=== PATIENT | male | born 1950 ===

== ENCOUNTER 2018-06-24 06:54 | Inpatient (IN) ==
[2018-06-24] MEDS ORDERED: CeFAZolin Syr 2,000MG/20 ML 2,000 MG/20 ML SYRINGE IVPB ONE (07:23)
[2018-06-24] MEDS ORDERED: Heparin 1,000 UNITS/500 mL 500 ML ONE (07:28)
[2018-06-24] MEDS ORDERED: Ringers Solution, Lactated 1,000 ML IVC SCH (07:30)
[2018-06-24] MEDS ORDERED: *HR* Vasopressin 20 UNIT/ML VIAL ONE (07:48)
--- NOTE | 2018-06-24 07:48 | Anesthesia Evaluation PreOp ---
Date of Encounter: 06/24/18 Time of Encounter: 07:46 - Past History Planned Operation: L carotid stenosis Cardiac History: HTN, Hyperlipidemia Pulmonary History: Former smoker [employer] History: CVA, Other (Left upper extremity tremor) Other Medical History: Renal (CKD), Diabetes Type II Anesthesia History: No Prior Anesthetic Complications, Past Anesthesia Alcohol Use: none Drug use: marijuana Medications and Allergies Atenolol/Chlorthalidone [Tenoretic 50 Tablet] 1 tab PO DAILY 06/18/18 [History] Cyclobenzaprine [Flexeril] 10 mg PO HS 06/18/18 [History] Diclofenac Sodium [Voltaren] 75 mg PO BID 06/18/18 [History] Gabapentin [Neurontin] 400 mg PO TID 06/18/18 [History] Metformin HCl [Glucophage] 1,000 mg PO BID 06/18/18 [History] Amlodipine Besylate [Amlodipine Besylate] 10 mg PO DAILY 06/24/18 [History] Aspirin 325 mg PO DAILY 06/24/18 [History] Pravastatin Sodium [Pravachol] 20 mg PO HS 06/24/18 [History] 3 Allergy/AdvReac Type Severity Reaction Status Date / Time No Known Allergies Allergy Verified 06/24/18 07:28 - Meds/Allergy Pre-op Review Medications Reviewed: Yes Allergies Reviewed: Yes Beta Blockers on Current Med List: Yes Anesthesia Results - Labs Laboratory Tests 06/18/18 06/18/18 06/18/18 02:05 02:05 02:05 WBC 7.3 Hgb 13.4 Hct 38.3 Plt Count 165 PT 12.4 H INR 1.1 Sodium 136 Potassium 3.8 Chloride 94 L Carbon Dioxide 31 H BUN 25 H Creatinine 1.61 H Est GFR (Non-Af Amer) 43 L Hemoglobin A1c 06/18/18 16:30 WBC Hgb Hct Plt Count PT INR Sodium Potassium Chloride Carbon Dioxide BUN Creatinine Est GFR (Non-Af Amer) Hemoglobin A1c 8.1 H - Imaging EKG: report reviewed, image reviewed, other (1 degree AV block) Additional studies: Echo 06/2018 EF 60% no valvular abnormalities Anesthesia Exam Vital Signs/O2 Sat/Glucose, Most Recent Temp Pulse Resp BP Pulse Ox 97.8 F 59 16 138/81 97 06/24/18 07:21 06/24/18 07:21 06/24/18 07:21 06/24/18 07:21 06/24/18 07:21 Blood Glucose* 173 Height: 1.85 m Weight: 99 kg NPO (# of Hours): > 8 hrs - HEENT Pupil (Motor): Pupils equal Mallampati: II Teeth: Edentulous Oral Opening: Greater than 3 - [employer] Motor: Normal RUE, Normal LUE, Normal RLE, Normal LLE, Normal Face [employer] Sensory: Normal: RUE, LUE, Face, Deficit: RLE (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
[2018-06-24] MEDS ORDERED: Acetaminophen IV 1,000 MG/100 ML INFUS..BTL IVPB ONE (07:50)
[2018-06-24] MEDS ORDERED: Famotidine 20 MG/2 ML VIAL IVP ONE (07:50)
[2018-06-24] MEDS ORDERED: Scopolamine Patch 1.5 MG PATCH.TD72 TD ONE (07:50)
[2018-06-24] MEDS ORDERED: Lidocaine 1% 20 ML MDV ONE (07:51)
[2018-06-24] MEDS ORDERED: Heparin 1,000 UNITS/500 mL 1,000 ML ONE (07:51)
[2018-06-24] MEDS ORDERED: *HR* Phenylephrine 10 MG/ML VIAL ONE ×2 (08:04→11:02)
[2018-06-24] MEDS ORDERED: Dexamethasone 4 MG/ML VIAL ONE (08:04)
[2018-06-24] MEDS ORDERED: *HR* Succinylcholine 200 MG/10 ML VIAL IVP ONE (08:04)
[2018-06-24] MEDS ORDERED: *HR* Rocuronium Bromide 50 MG/5 ML VIAL ONE ×2 (08:04→09:59)
[2018-06-24] MEDS ORDERED: Lidocaine -MPF 4% 5 ML AMPUL ONE (08:04)
[2018-06-24] MEDS ORDERED: Ondansetron 4 MG/2 ML VIAL ONE (08:04)
[2018-06-24] MEDS ORDERED: Lidocaine -MPF 2% 2 ML VIAL ONE (08:04)
[2018-06-24] MEDS ORDERED: *HR* FentaNYL (PF) 100 MCG/2 ML VIAL ONE (08:06)
[2018-06-24] MEDS ORDERED: *HR* Midazolam HCl 2 MG/2 ML VIAL ONE (08:06)
[2018-06-24] MEDS ORDERED: *HR* Propofol 200 MG/20 ML VIAL IVP ONE (08:06)
[2018-06-24] MEDS ORDERED: 0.9 % Sodium Chloride 300 ML ONE (08:07)
--- NOTE | 2018-06-24 08:08 | History & Physical Report ---
Date of Encounter: 06/24/18 Time of Encounter: 08:00 24 Hour HP Update - Instructions Instructions: If the History and Physical is less than 30 days old and was completed prior to A.M. admission and or procedure and has NOT been updated on calendar day of procedure please complete this update prior to performing procedure. - Update Patient reports changes in Medical Condition: No Changes in examination, assessment, or condition: No Changes in Medication: No Preop tests/diagnostics Reviewed: Yes Surgery Remains Indicated: Yes Consent for Planned Operative Procedure(s) Verified: Yes
[2018-06-24] MEDS ORDERED: ceFAZolin 1,000 MG, Sodium Chloride IRRigation 1,000 ML IR ONE (08:15)
[2018-06-24] MEDS ORDERED: *HR* Labetalol 20 MG/4 ML SYRINGE IVP PRN ×2 (10:05→13:29)
[2018-06-24] MEDS ORDERED: *HR* OxyCODONE Immed Rel 5 MG TABLET PO PRN (10:05)
[2018-06-24] MEDS ORDERED: *HR* FentaNYL (PF) 100 MCG/2 ML VIAL IVP PRN (10:05)
[2018-06-24] MEDS ORDERED: *HR* Promethazine 25 MG/ML VIAL IVP PRN (10:05)
[2018-06-24] MEDS ORDERED: Ondansetron 4 MG/2 ML VIAL IVP ONE (10:05)
[2018-06-24] MEDS ORDERED: *HR* Heparin 5,000 UNIT/ML VIAL ONE (10:11)
--- NOTE | 2018-06-24 10:14 | Anesthesia Procedures ---
Date of Encounter: 06/24/18 Time of Encounter: 08:30 Procedures: Anesthesia - Arterial Line Consent obtained: written consent Time out performed: Yes Sedation: Versed (mg): 2 Supplemental Oxygen via Nasal Cannula (L/min): 10 (via Mask) Local Anesthetic: Lidocaine 1% Amount of Anesthetic used (mls): 0.5 Size (Gauge): 20 Length (inches): 1 3/4 Technique Used: sterile prep, guide wire technique, direct puncture technique Post-Procedure: dry sterile dressing placed Patient tolerated procedure: well Complications: none Site: Radial L Vitals: Refer to anesthesia documentation.
[2018-06-24] MEDS ORDERED: Neostigmine Methylsulfate 3 MG/3 ML SYRINGE ONE (11:53)
--- NOTE | 2018-06-24 12:07 | Operative Note ---
Date of procedure: 06/24/18 Pre-op diagnosis: left carotid stenosis and cva Post-op diagnosis: same Procedure: left carotid endarterectomy with 8 Fr shunt and patch angioplasty with bovine patch Complications: none Anesthesia: GETA Surgeon: David Penn Was there an practice assistant present: No Estimated blood loss (cc): 200 Specimen: 0 Condition: stable Disposition: PACU Procedure in Detail: History José Manuel Lala is a 67-year-old white male with a history of diabetes that is poorly controlled who had a right hemispheric stroke in April 2018. Workup was performed by Dr. Sadler in neurology. This included a duplex scan as well as a CT angiogram of the head and neck. This demonstrated a variety of lesions. 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 As the left carotid lesion can be addressed now he now comes to the operating room for carotid endarterectomy. Procedure After informed consent was obtained the patient was taken to the operating room. General endotracheal anesthesia was established under arterial line pressure monitoring. The left neck was sterilely prepped and draped. A timeout protocol was observed. An oblique incision was made parallel to the anterior border of the left sternocleidomastoid muscle. Dissection was carried down to the carotid sheath which was then opened. The contents of the carotid sheath were dissected and the structures were identified. The ansa cervicalis nerve was divided as was the facial vein. Control was obtained of the arteries themselves. 5000 units of heparin were then administered intravenously. After 3 minutes later the internal carotid artery was clamped. An 11 blade knife and Palma scissors was used to open the artery. 8-Urdu shunt was then inserted atraumatically. Patency of the shunt was confirmed by the use of intraoperative Doppler. Inspection of the plaque revealed a very diffuse dense plaque. There were no findings of intramural hemorrhage. There is no finding of active thrombus in the lumen. The plaque was quite extensive and extended to the base of the neck in the common carotid artery. Further dissection was then necessary of the common carotid artery and the proximal clamp needed to be repositioned more proximally. The arteriotomy also need to be extended. The endarterectomy was then begun at the distal aspect of the common carotid artery. A circumferential dissection was made and this was carried both proximally and distally. The proximal plaque was extremely dense and thick. This required a temporary removal of the shunt and an extraction of the more proximal plaque to achieve an appropriate and smooth endpoint. The shunt was then reinserted and patency was reconfirmed. The plaque at the internal carotid artery was as depicted on the CT scan it was a very critical plaque of greater than 90% stenosis. The endpoint on the internal carotid artery was smooth but again was very high in the neck and the bifurcation was high leading to retraction of the jaw in order to expose the area for endarterectomy. The bed of the vessel was then inspected for any residual debris. The orifice of the external carotid artery was also endarterectomized. The base of the vessel was then flushed with a copious amount of heparinized saline. A bovine pericardial patch was then sewn into position using 2 6-0 Prolene sutures. The length of the arteriotomy required the entire length of the patch without trimming. Leaving a small space open on the suture line the shunt was clamped and divided and then removed. The internal was allowed to backbleed and then reclamped. The final few sutures were then placed. The external and common were opened and then finally the internal was reopened. The patient had no hemodynamic distress with this maneuver. Excellent pulsations were identified throughout the vessels. Hemostasis was achieved. A superficial cervical block using half percent Marcaine was then performed. The wound was then irrigated with a copious amount of antibiotic containing solution. The wound was then closed in layers using absorbable suture. The patient was then allowed to awaken from anesthesia. He was found to be neurologically stable. He was then extubated. He was taken from the operating room to the recovery room in stable condition.
[2018-06-24] MEDS ORDERED: EPHEDrine 50 MG/ML VIAL ONE (12:45)
[2018-06-24] MEDS: EPHEDrine 50 MG/ML VIAL IVP SCH ×2 (12:46→12:52)
[2018-06-24] MEDS ORDERED: Insulin Regular, Human 100 UNIT/ML SQ ONE ×2 (12:54→13:15)
[2018-06-24] MEDS ORDERED: Naloxone 0.4 MG/ML INJ IVP PRN (13:29)
[2018-06-24] MEDS ORDERED: *HR* HYDROcodone/Acet 5/325 mg TABLET PO PRN (13:29)
[2018-06-24] MEDS ORDERED: Acetaminophen 325 MG TABLET PO PRN (13:29)
[2018-06-24] MEDS ORDERED: Ondansetron 4 MG/2 ML VIAL IVP PRN (13:29)
--- NOTE | 2018-06-24 13:34 | Anesthesia Evaluation Post Op ---
Date of Encounter: 06/24/18 Time of Encounter: 13:29 - Vital Signs Vital Signs: Vital Signs/O2 Sat/Glucose, Most Recent Temp Pulse Resp BP Pulse Ox 98.2 F 69 12 110/60 99 06/24/18 13:22 06/24/18 13:22 06/24/18 13:22 06/24/18 13:22 06/24/18 13:22 Blood Glucose* 173 - Lungs Lungs: Clear Ascult./Percussion - Airway Airway: Non-obstructed - Cardiovascular Regular Rate - Mental Status Mental Status: Alert & Oriented, Answers Appropriately - Pain Pain Scale used: Alejandro (Faces) - Nausea Vomiting Nausea Vomiting: Not Present - Hydration Hydration: NPO - Discharge PostOp Status: Transfer Patient to floor Attestation: patient moving all 4 extremities. Given SQ insulin for hyperglycemia. Albumin and ephedrine for hypotension. vital signs stable prior to transfer to floor
[2018-06-24] MEDS: Gabapentin 400 MG CAPSULE PO SCH ×2 (15:12→20:50)
[2018-06-24] MEDS: *HR* Metformin 500 MG TABLET PO SCH (20:49)
[2018-06-24] MEDS: Diclofenac Sodium 75 MG TABLET PO SCH (20:49)
[2018-06-25 04:51] LABS: Basophils % 0.1 %; Eosinophils % 0.1 %; Hematocrit 33.1 % (37.5-50.1); Hemoglobin 11.4 g/dL (12.9-16.9); Immature Granulocytes % 0.5 % (0-4); Lymphocytes # 1.2 K/mcL (0.6-4.6); Mean Corpuscular HGB Conc 34.4 g/dL (31.6-35.5); Mean Corpuscular Hemoglobin 31.2 pg (28.0-33.3); Mean Corpuscular Volume 90.7 fL (83.0-100.0); Mean Platelet Volume 10.9 fL (9.4-12.4); Monocytes # 0.6 K/mcL (0.0-1.3); Monocytes % 5.8 %; Neutrophils # 9.1 K/mcL (1.6-8.9); Platelet Count 143 K/mcL (140-400); Red Blood Count 3.65 M/mcL (4.19-5.50); Red Cell Distribution Width 13.4 % (11.5-14.5); Segmented Neutrophils % 82.5 %
[2018-06-25 05:14] LABS: Blood Urea Nitrogen 24 mg/dL (8-23); Carbon Dioxide 27 mEq/L (23-29); Chloride 98 mEq/L (98-107); Potassium 3.9 mEq/L (3.5-5.1); Sodium 134 mEq/L (136-145)
[2018-06-25 05:15] LABS: BUN/Creatinine Ratio 22 (6-26); Calcium 9.3 mg/dL (8.6-10.3); Glucose 188 mg/dL (70-105); Osmolality,Calculated 287 (280-300); eGFR For African Americans > 60 (> 60); eGFR For Non-African Americans > 60 (> 60)
[2018-06-25] MEDS: *HR* Metformin 500 MG TABLET PO SCH (07:42)
[2018-06-25] MEDS: Gabapentin 400 MG CAPSULE PO SCH (07:42)
[2018-06-25] MEDS: Diclofenac Sodium 75 MG TABLET PO SCH (07:42)
[2018-06-25] MEDS ORDERED: Aspirin 325 MG TABLET PO SCH (09:00)
[2018-06-25] MEDS ORDERED: amLODIPine 5 MG TABLET PO SCH (09:00)
[2018-06-25] MEDS ORDERED: ATENOLOL PO SCH (09:00)
[2018-06-25] MEDS ORDERED: CHLORTHALIDONE PO SCH (09:00)
--- NOTE | 2018-06-25 10:20 | Discharge Summary ---
Date of Encounter: 06/25/18 Time of Encounter: 12:39 - Discharge Diagnosis (1) Carotid stenosis, symptomatic, with infarction Priority: Primary Status: Acute Comments: Patient is status post right hemispheric stroke. He was identified as having a high-grade lesion of the right M1 area, a critical stenosis of the left proximal internal carotid artery, and occlusion of the left V4 section of the vertebral artery. (2) Hypertension Priority: Secondary Status: Chronic Comments: Patient has chronic hypertension Qualifiers: Hypertension type: essential hypertension Qualified Code(s): I10 - Essential (primary) hypertension (3) Diabetes Priority: Secondary Status: Chronic Comments: Patient has history of diabetes Qualifiers: Diabetes mellitus type: type 2 Diabetes mellitus skilled nursing insulin use: without cream beater use Diabetes mellitus complication status: with circulatory complication Diabetes mellitus complication detail: with other circulatory complications Qualified Code(s): E11.59 - Type 2 diabetes mellitus with other circulatory complications - Hospital Course Hospital course: Mr. Lala is a 67 year old male With the known right hemispheric stroke. He has diffuse disease by CT scanning of the neck and brain. The patient was admitted for left carotid endarterectomy for a high-grade left internal carotid artery stenosis. At the time of surgery the atherosclerotic disease was found to be very extensive extending both more proximally and more distally than depicted by CT angiogram. The patient had an extensive carotid endarterectomy. He had no periprocedural complications. Postoperatively doing well. He was neurologically intact. He was judged appropriate for discharge on the afternoon of postoperative day #1. Instructions were given in regards to his diet and exercise. Particular emphasis was made to the patient about controlling his diabetes. - Time Spent with Patient Total time spent providing and/or coordinating discharge services: - Discharge Medications Home Medications: Atenolol/Chlorthalidone [Tenoretic 50 Tablet] 1 tab PO DAILY 06/18/18 [History] Cyclobenzaprine [Flexeril] 10 mg PO HS 06/18/18 [History] Diclofenac Sodium [Voltaren] 75 mg PO BID 06/18/18 [History] Gabapentin [Neurontin] 400 mg PO TID 06/18/18 [History] Metformin HCl [Glucophage] 1,000 mg PO BID 06/18/18 [History] Amlodipine Besylate 10 mg PO DAILY 06/24/18 [History] Aspirin 325 mg PO DAILY 06/24/18 [History] Pravastatin Sodium [Pravachol] 20 mg PO HS 06/24/18 [History] Allergies/Adverse Reactions: 3 Allergy/AdvReac Type Severity Reaction Status Date / Time No Known Allergies Allergy Verified 06/24/18 07:28 Date of admission: 06/24/18 13:30 Primary care physician: Kelsey Esquivel Consults: None Procedure(s) Performed: Left carotid endarterectomy with patch angioplasty Discharging clinician: David Penn Anticipated date of discharge: 06/25/18 Exam Vital Signs, Last 4 Hours Temp Pulse Resp BP Pulse Ox 06/25/18 07:33 98.2 F 67 18 149/81 98 General: Present: Conversant, No Apparent Distress, Well developed, Well nourished HEENT: Present: Atraumatic, Trachea midline Neck: Absent: JVD Cardiac: Present: Reg Rate and Rhythm Lungs: Present: Normal Breath Sounds Neuro: Present: Alert and responsive, No focal deficits noted, Cranial nerves grossly intact, Motor nerves grossly intact, Sensory nerves grossly intact Vascular: Present: Surgical incisions (Left neck incision is clean and dry.) - Patient Status Disposition: Home, Self-Care Condition: Good Functional capacity at discharge: independent ambulation Overall status at discharge: patient is progressing back to baseline - Discharge Instructions Follow Up With: Kelsey Esquivel [Primary Care Provider] - 07/02/18 2:30 pm () David Penn MD [Partnered Physician] - 07/07/18 11:45 am (this appointment is in [place]) Additional Instructions: Keep left neck incision dry for a total of 5 days following surgery No lifting greater than 10 pounds, no automobile driving, no manual labor Resume usual home medications - Diet and Activity Activity: increase activity as tolerated Diet: diabetic diet - VTE Documentation of Mechanical Device: Intermittent pneumatic compression device
[2018-06-25 11:29] VITALS: BP 115/61
== END 2018-06-25 13:05 | disposition home or self-care (01) | DRG 39 ==
LOC: SAMDAY 06:54 → 2NNU 13:30
PROVIDERS: ADMIT Surgery Vascular Surgery; ATTEND Surgery Vascular Surgery